=== PATIENT | male | born 1990 | race American Indian/Alaskan Native ===

== ENCOUNTER 2019-10-07 15:58 | Emergency (ER) | payer SELFPAY ==
[~2019-10-07 15:58] MED LIST: EPINEPHrine 1:10,000 1 MG/10 ML SYRINGE ONE
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
== END 2019-10-07 17:49 ==
LOC: ED 15:58
DX: I46.9 Cardiac arrest, cause unspecified (principal); W34.00XA Accidental discharge from unspecified firearms or gun, initial encounter; Y93.89 Activity, other specified; Y92.89 Other specified places as the place of occurrence of the external cause; Y99.8 Other external cause status
CPT/HCPCS: 99291; J0171